=== PATIENT | female | born 1990 | race American Indian/Alaskan Native ===

== ENCOUNTER 2019-06-07 00:21 | Emergency (ER) | payer SELFPAY ==
[2019-06-07] MEDS ORDERED: diphenhydrAMINE 25 MG CAP PO ONE (03:38)
[2019-06-07] MEDS ORDERED: dexAMETHasone 20 MG/5 ML VIAL IM ONE (03:38)
[2019-06-07] MEDS ORDERED: METOCLOPRAMIDE 10 MG TAB PO ONE (03:38)
--- NOTE | 2019-06-07 04:21 | Emergency Department Report ---
HPI - General Chief Complaint: Allergic Reaction Time Seen by Provider: 06/07/19 03:36 - HPI HPI: Ms. Vizcarra is a 29 y/o aaf who presents for allergic reaction x 1 month , states she get intermittent hives to chest bilat arms and neck intermittently for last month. pt palomo sob no wheezing no dizziness no n/v . State unknown trigger. 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 pt has not taken otc antihistamine for symptoms. ED Past Medical Hx - Past Medical History Previous Medical History?: No - Surgical History Past Surgical History?: No - Social History Smoking Status: Current Every Day Smoker Substance Use Type: None - Medications Home Medications: Home Medications Medication Instructions Recorded Confirmed Last Taken Type EPINEPHrine [Epipen 2-Michel] 0.3 mg IJ PRN PRN #1 auto.injct 06/07/19 Unknown Rx Famotidine [Pepcid] 20 mg PO BID 7 Days #14 tablet 06/07/19 Unknown Rx diphenhydrAMINE [Benadryl CAP] 25 mg PO Q8HR PRN #30 capsule 06/07/19 Unknown Rx predniSONE [Deltasone] 20 mg PO QDAY 5 Days #10 tab 06/07/19 Unknown Rx ED Review of Systems ROS: Stated complaint: FACIAL SWELLING HEAD CONGESTION Other details as noted in HPI Physical Exam - Physical Exam Vital Signs: Vital Signs 06/07/19 00:37 Temperature 99.0 F Pulse Rate 85 Respiratory 18 Rate Blood Pressure 123/91 O2 Sat by Pulse 100 Oximetry General: pt appears well nontoxic, with nad Physical Exam: airway is patent no stridor no wheezing no swelling, pt is a/o x 3, speaking in full sentences , lung sounds clear bilat all lobes, resp even non labored. there are no hives no rash, no n/v no resp distress, no accessory muscle use. ED Course Vital Signs 06/07/19 00:37 Temperature 99.0 F Pulse Rate 85 Respiratory 18 Rate Blood Pressure 123/91 O2 Sat by Pulse 100 Oximetry ED Medical Decision Making - Medical Decision Making all symptoms relieved, plan: benadryl, prednisone,pepcid follow up with pcp in 2-3 days. Return to ed if symptoms worsen. pt verbalizes agreement and understanding of same. Critical care attestation.: If time is entered above; I have spent that time in minutes in the direct care of this critically ill patient, excluding procedure time. ED Disposition Clinical Impression: Contact dermatitis Qualifiers: Contact dermatitis type: allergic Contact dermatitis trigger: unspecified trigger Qualified Code(s): L23.9 - Allergic contact dermatitis, unspecified caus e Disposition: DC- TO HOME OR SELFCARE Is pt being admited?: No Does the pt Need Aspirin: No Condition: Stable Instructions: Contact Dermatitis (ED), Allergies (ED) Prescriptions: diphenhydrAMINE [Benadryl CAP] 25 mg PO Q8HR PRN #30 capsule PRN Reason: itching allergies predniSONE [Deltasone] 20 mg PO QDAY 5 Days #10 tab EPINEPHrine [Epipen 2-Michel] 0.3 mg IJ PRN PRN #1 auto.injct PRN Reason: as needed Famotidine [Pepcid] 20 mg PO BID 7 Days #14 tablet Referrals: PRIMARY CARE,MD [Primary Care Provider] - 3-5 Days [facility] [Outside] - 3-5 Days Forms: Work/School Release Form(ED) Time of Disposition: 04:31
[2019-06-07 04:43] VITALS: BP 134/94
== END 2019-06-07 04:42 | disposition home or self-care (01) ==
LOC: ED 00:21
DX: L25.9 Unspecified contact dermatitis, unspecified cause (principal); F17.200 Nicotine dependence, unspecified, uncomplicated; Z79.899 Other long term (current) drug therapy
CPT/HCPCS: 96372; 99282; J1100

== ENCOUNTER 2019-08-13 15:03 | Emergency (ER) | payer SELFPAY ==
[2019-08-13 15:16] VITALS: BP 134/82
--- NOTE | 2019-08-13 17:31 | Emergency Department Report ---
Chief Complaint: Earache Stated Complaint: EAR PAIN - HPI History of Present Illness: 29 yo female with allergic reaction intermittent x 2 -3 days swelling to lips, hands, feet puritic rash/hives no sob, wheezing, throat or tongue swelling similar sx nov no known cause seen here lost scripts but sx improved pt denies new exposures sx improving only residual hives at this time. - Exam Vital Signs: Vital Signs 08/13/19 15:13 Temperature 98.3 F Pulse Rate 98 H Respiratory 20 Rate Blood Pressure 134/82 O2 Sat by Pulse 97 Oximetry Physical Exam: ctab no tongue or airway swelling scatterd hives on skin no swelling to extremities or lips MSE screening note: Focused history and physical exam performed. Due to findings the following was ordered: scripts provided for allergic reaction social worker f/u ED Disposition for MSE Clinical Impression: Allergic reaction Disposition: DC- TO HOME OR SELFCARE Is pt being admited?: No Does the pt Need Aspirin: No Condition: Stable Instructions: Allergies (ED) Additional Instructions: Take the meds prescribed. Prescriptions: diphenhydrAMINE [Benadryl CAP] 25 mg PO Q8HR PRN #30 capsule PRN Reason: itching allergies predniSONE [Deltasone] 40 mg PO QDAY 5 Days tab EPINEPHrine [Epipen 2-Michel] 0.3 mg IJ PRN PRN #1 auto.injct PRN Reason: as needed Famotidine [Pepcid] 20 mg PO BID 7 Days #14 tablet Referrals: HAMMAD FERREIRA JR, MD [Staff Physician] - 3-5 Days ALDA FIERRO MD [Referring] - 3-5 Days EMMA ACUNA MD [Referring] - 3-5 Days Time of Disposition: 17:30
== END 2019-08-13 17:35 | disposition home or self-care (01) ==
LOC: ED 15:03
DX: T78.40XA Allergy, unspecified, initial encounter (principal); X58.XXXA Exposure to other specified factors, initial encounter
CPT/HCPCS: 99282

== ENCOUNTER 2021-05-05 00:09 | Emergency (ER) | payer SELFPAY ==
[2021-05-05] MEDS ORDERED: ACETAMINOPEN W/CODEINE 120-12MG ORAL LIQD 5 ML PO STA (01:54)
[2021-05-05 02:56] LABS: HCG Qualitative,Urine Negative (Negative)
--- NOTE | 2021-05-05 03:19 | XRay Report ---
CHEST 2 VIEWS INDICATION / CLINICAL INFORMATION: cough. COMPARISON: None available. FINDINGS: SUPPORT DEVICES: None. HEART / MEDIASTINUM: No significant abnormality. LUNGS / PLEURA: No significant pulmonary or pleural abnormality. No pneumothorax. ADDITIONAL FINDINGS: Scoliosis IMPRESSION: 1. No acute findings. Signer Name: Santos Bond MD Signed: 05/05/2021 3:15 AM Workstation Name: [id number]
--- NOTE | 2021-05-05 03:56 | Emergency Department Report ---
- General Chief Complaint: Upper Respiratory Infection Stated Complaint: BAD COUGH/SHORTNESS OF BREATH Time Seen by Provider: 05/05/21 01:54 Source: patient Mode of arrival: Ambulatory Limitations: No Limitations - History of Present Illness Initial Comments: 30-year-old -[place] female that emerge department complaining of a few day history of occasionally productive cough: Associated with some coryza and scant mucus production of unknown etiology. No fevers, chills, sweats but no hemoptysis no hematemesis hematochezia, no diarrhea, no nausea no vomiting. MD Complaint: cough, rhinorrhea, nasal congestion -: Gradual Severity: mild, moderate Quality: dull, aching Consistency: constant Improves With: nothing Associated Symptoms: chills, rhinorrhea, nasal congestion, cough. denies: abdominal pain, nausea, vomiting, weight loss, epistaxis, hoarseness, ear pain Treatments Prior to Arrival: none - Related Data Previous Rx's Medication Instructions Recorded Last Taken Type predniSONE [Deltasone] 20 mg PO QDAY 5 Days #10 tab 06/07/19 Unknown Rx EPINEPHrine [Epipen 2-Michel] 0.3 mg IJ PRN PRN #1 auto.injct 08/13/19 Unknown Rx Famotidine [Pepcid] 20 mg PO BID 7 Days #14 tablet 08/13/19 Unknown Rx diphenhydrAMINE [Benadryl CAP] 25 mg PO Q8HR PRN #30 capsule 08/13/19 Unknown Rx predniSONE [Deltasone] 40 mg PO QDAY 5 Days tab 08/13/19 Unknown Rx Albuterol Mdi (or & Nicu Only) 1 puff IH Q4-6H PRN #1 inha 05/05/21 Unknown Rx [ProAir HFA Inhaler] Benzonatate [Tessalon Perles] 100 mg PO Q8HR #20 capsule 05/05/21 Unknown Rx Allergies Allergy/AdvReac Type Severity Reaction Status Date / Time No Known Allergies Allergy Unverified 06/07/19 01:00 ED Review of Systems ROS: Stated complaint: BAD COUGH/SHORTNESS OF BREATH Other details as noted in HPI Comment: All other systems reviewed and negative ED Past Medical Hx - Past Medical History Previous Medical History?: No - Surgical History Past Surgical History?: No - Social History Smoking Status: Current Every Day Smoker Substance Use Type: Marijuana - Medications Home Medications: Home Medications Medication Instructions Recorded Confirmed Last Taken Type predniSONE [Deltasone] 20 mg PO QDAY 5 Days #10 tab 06/07/19 Unknown Rx EPINEPHrine [Epipen 2-Michel] 0.3 mg IJ PRN PRN #1 auto.injct 08/13/19 Unknown Rx Famotidine [Pepcid] 20 mg PO BID 7 Days #14 tablet 08/13/19 Unknown Rx diphenhydrAMINE [Benadryl CAP] 25 mg PO Q8HR PRN #30 capsule 08/13/19 Unknown Rx predniSONE [Deltasone] 40 mg PO QDAY 5 Days tab 08/13/19 Unknown Rx Albuterol Mdi (or & Nicu Only) 1 puff IH Q4-6H PRN #1 inha 05/05/21 Unknown Rx [ProAir HFA Inhaler] Benzonatate [Tessalon Perles] 100 mg PO Q8HR #20 capsule 05/05/21 Unknown Rx ED Physical Exam - General Limitations: No Limitations General appearance: alert, in no apparent distress - Head Head exam: Present: atraumatic, normocephalic - Eye Eye exam: Present: normal appearance, PERRL, EOMI Pupils: Present: normal accommodation - ENT ENT exam: Present: mucous membranes moist - Neck Neck exam: Present: normal inspection, full ROM - Respiratory Respiratory exam: Present: normal lung sounds bilaterally. Absent: respiratory distress - Cardiovascular Cardiovascular Exam: Present: regular rate, normal rhythm. Absent: systolic murmur, diastolic murmur, rubs, gallop - GI/Abdominal GI/Abdominal exam: Present: soft, normal bowel sounds - Extremities Exam Extremities exam: Present: normal inspection, normal capillary refill - Back Exam Back exam: Present: normal inspection. Absent: CVA tenderness (R), CVA tenderness (L) - Neurological Exam Neurological exam: Present: alert, oriented X3, CN II-XII intact - Psychiatric Psychiatric exam: Present: normal affect, normal mood. Absent: flat affect, manic - Skin Skin exam: Present: warm, dry, intact, normal color. Absent: rash, cyanosis, diaphoretic, erythema ED Medical Decision Making - Radiology Data Radiology results: report reviewed [facility] [address] [place] [address] XRay Report Signed Patient: CHELSEA MARTINEZ MR#: [id number] : 1990 Acct:[id number] Age/Sex: 30 / F ADM Date: 05/05/21 Loc: ED Attending Dr: Ordering Physician: Regina Kaiser MD Date of Service: 05/05/21 Procedure(s): XR chest routine 2V Accession Number(s): [id number] cc: Regina Kaiser MD Fluoro Time In Minutes: CHEST 2 VIEWS INDICATION / CLINICAL INFORMATION: cough. COMPARISON: None available. FINDINGS: SUPPORT DEVICES: None. HEART / MEDIASTINUM: No significant abnormality. LUNGS / PLEURA: No significant pulmonary or pleural abnormality. No pneumothorax. ADDITIONAL FINDINGS: Scoliosis IMPRESSION: 1. No acute findings. Signer Name: Santos Bond MD Signed: 05/05/2021 3:15 AM Workstation Name: [id number] Transcribed By: VIKASH Dictated By: CHIQUITA BOND MD Electronically Authenticated By: CHIQUITA BOND MD Signed Date/Time: 05/05/21314 DD/ 4 TD/TT: Print Cancel - Medical Decision Making Problem 1 cough This patient presents with acute cough, most consistent with bronchitis. Differential diagnosis includes URI, bronchitis, asthma, hyperreactive airway disease. Presentation not consistent with acute bacterial pneumonia, influenza, asthma, transient airway hyperresponsiveness. Presentation not consistent with chronic causes of cough (including GERD, asthma, postnasal discharge, medication side effect, CHF, lung cancer or mass). Chest x-ray normal Plan: , supportive care, reassess Problem 2 Cold Symptoms This 30-year-old patient presents with symptoms suspicious for likely viral upper respiratory tract infection. Differential includes bacterial pneumonia, sinusitis, allergic rhinitis, coronavirus, bronchitis, hyperreactive airways. Do not suspect underlying Cardiopulmonary process. I considered but think unlikely dangerous cause of this patient symptoms to include acute coronary syndrome, CHF or COPD exacerbations, pneumonia, pneumothorax. Patient is nontoxic appearing and not in need of emergent medical intervention. Plan: Reassurance, reassessment, [id number] medications, discharge with PCP follow-up Critical care attestation.: If time is entered above; I have spent that time in minutes in the direct care of this critically ill patient, excluding procedure time. ED Disposition Clinical Impression: Upper respiratory disease, Bronchitis Disposition: / SELF CARE / HOMELESS Is pt being admited?: No Does the pt Need Aspirin: No Condition: Stable Instructions: Chronic Bronchitis (ED), Upper Respiratory Infection, Adult, [id number], How to Use a Metered Dose Inhaler Additional Instructions: Given evaluate emergency department today for your congestion, cough and fevers. Your evaluation suggest that your symptoms are most likely due to a viral illness. Which will improve on its own with rest and fluids. Recommend that you take ibuprofen 600 mg every 6 hours or Tylenol 12/16/1949 every 6 hours as needed for fever. If needed you can alternate these medications so that you take one medication every 3 hours. For instance at noon take ibuprofen and at 3 PM take Tylenol and then at 6 PM take ibuprofen. Please schedule an appointment for follow-up with your primary care physician within a week. Return to the emergency department if you experience worsening cough, uncontrollable fevers that not being controlled with Tylenol ibuprofen. Recurrent vomiting, chest pain, shortness of breath or any other symptoms suggesting that your condition is worsening. Referrals: [facility] [Provider Group] - 3-5 Days
[2021-05-05 04:28] VITALS: BP 150/99
== END 2021-05-05 04:25 | disposition home or self-care (01) ==
LOC: ED 00:09
DX: J06.9 Acute upper respiratory infection, unspecified (principal); J40 Bronchitis, not specified as acute or chronic; F17.200 Nicotine dependence, unspecified, uncomplicated; F12.90 Cannabis use, unspecified, uncomplicated; Z79.899 Other long term (current) drug therapy
CPT/HCPCS: 71046; 81025; 99283